=== PATIENT | female | born 1955 | race Caucasian/White ===

== ENCOUNTER 2017-02-13 11:40 | Emergency (ER) | payer MEDICARE ==
[~2017-02-13] VITALS: Ht 167.6 cm; Wt 109.8 kg
[~2017-02-13 11:40] MED LIST: CHANTIX1 M1 PO; CLONIDINE 0.2M0.2 MG PO; FENOFIBRATE160 MG PO; GLYBURIDE2.5 MG PO; GOOD NEIGHBOR P20 M1 PO; LORATADINE 10MG10 M1 PO; MAXZIDE 50 MG-71 TAB OR; METFORMIN 500M500 MG PO; NAPROSYN500 M1 PO; PRAVACHOL 40MG40 MG PO; ROBAXIN-750750 MG PO; SERTRALINE 100100 MG PO; TRAMADOL50 M1 PO
--- OUTSIDE RECORDS SUMMARY | 2017-02-13 11:46 | External Medical Summary Rpt | CCD ---
Author Author [employer] Organization [employer] Address Unknown Phone Unavailable Purpose Continuity of Care Document - through 2016
--- OUTSIDE RECORDS SUMMARY | 2017-02-13 11:46 | External Medical Summary Rpt | CCD ---
Author Author , BETTYE WEN Address Unknown Phone [email or web address] Purpose Continuity of Care Document - 06-30-2013 through 2016 Problems Code Diagnosis DOS Provider Status S39.012A STRAIN OF MUSCLE, FASCIA AND TENDON OF LOWER BACK, INIT
--- OUTSIDE RECORDS SUMMARY | 2017-02-13 11:46 | External Medical Summary Rpt | CCD ---
Author Author , BETTYE WEN Address Unknown Phone [email or web address] Purpose Continuity of Care Document - 06-30-2013 through 2016 Problems Code Diagnosis DOS Provider Status S39.012A STRAIN OF MUSCLE, FASCIA AND TENDON OF LOWER BACK, INIT
--- OUTSIDE RECORDS SUMMARY | 2017-02-13 11:47 | External Medical Summary Rpt ---
Author Author ДМИТРИЙSALVADOR Woods, BETTYE [employer] Organization [employer] Address Unknown Phone Unavailable Results Lipid Scr Observa Value Referen Units Interpr Notes Date tion ce etation Range Cholest 154 <=200 mg/dL No < 200 August 08 zi informa 2017 [Percen tion in 5:10 PM tile] source Desirab data le\.br\ 200 - 239 Borderl ine High\.b r\>= 240 High TRIGLYC 308 <=150 mg/dL High < 150 August 08 ERIDES. 2017 TOTAL Normal\ 5:10 PM .br\150 - 199 Borderl ine High\.b r\200 - 499 High\.b r\ >= 500 Very High CHOLEST 34 >=40 mg/dL Low > 60 August 08 EROLS.I 2017 N HDL Optimal 5:10 PM \.br\40 - 60 Accepta ble\.br \ < 40 Low LDL 58 <=100 mg/dL No < 100 August 08 Calcula informa 2016 sheila tion in 5:10 PM source Optimal data \.br\10 0 - 129 Near or above optimal \.br\13 0 - 159 Borderl ine High\.b r\160 - 189 High\.b r\ >= 190 Very High BMP Observa Value Referen Units Interpr Notes Date tion ce etation Range Sodium 136 136 - mmol/L No No August 08 145 informa informa 2016 tion in tion in 5:10 PM source source data data Potassi 4.6 3.5 - mmol/L No No August 08 um 5.0 informa informa 2016 [Moles/ tion in tion in 5:10 PM volume] source source in data data Serum or Plasma Chlorid 97 98 - mmol/L Low No August 08 e 107 informa 2016 tion in 5:10 PM source data Carbon 26 22 - 29 mmol/L No No August 08 dioxide informa informa 2016 , total tion in tion in 5:10 PM source source [Moles/ data data volume] in Serum or Plasma Anion 13 7 - 16 mmol/L No No August 08 Gap informa informa 2016 tion in tion in 5:10 PM source source data data CALCIUM 9.5 8.6 - mg/dL No August 08 .TOTAL 10.2 informa informa 2016 tion in tion in 5:10 PM source source data data Glucose 85 74 - mg/dL No August 08 Lvl 100 informa informa 2016 tion in tion in 5:10 PM source source data data BUN 17 6 - 20 mg/dL No August 08 informa informa 2017 tion in tion in 5:10 PM source source data data Creatin 1.00 0.51 - mg/dL No August 08 ine 1.30 informa informa 2016 tion in tion in 5:10 PM source source data data GFR Non 57 No No No August 08 Afr Am informa informa informa informa 2016 tion in tion in tion in tion in 5:10 PM source source source source data data data data XR FOOT RIGHT AP LATERAL AND OBLIQUE Observa Value Referen Units Interpr Notes Date tion ce etation Range 07/25/19 No No No No Jul 24 17\.br\ informa informa informa informa 2016 \.br\Ri tion in tion in tion in ti in 8:41 PM ght source source source source foot data data data data series, 3 views:\ .br\\.b r\Histo ry: Chronic pain. No compari son studies .\.br\\ .br\Mod erate degener ative change, first MTP joint. No evidenc e of fractur e or\.br\ bony\.b r\destr uctive process . Focal accesso ry ossicle noted, base of the fifth\. br\meta tarsal. Moderat e degener ative change involve s the midfoot structu res\.br \and\.b r\subta lar joint. Focal bony calcane al hypertr ophic spur. If the patient has\.br \progre ssive pain or instabi lity, conside r follow- up MR imaging .\.br\\ .br\IMP RESSION :\.br\I mpressi on:\.br \\.br\M ultifoc al degener ative change, right foot. No acute fractur e deformi ty.\.br \ HCV Screen Observa Value Referen Units Interpr Notes Date tion ce etation Range Hep C Negativ Negativ No No No Jul 8 Ab e e informa informa informa 2016 tion in tion in tion in 9:16 AM source source source data data data XR CHEST PA AND LATERAL Observa Value Referen Units Interpr Notes Date ti ce etation Range \.br\XR No No No No Jun 11 CHEST informa informa informa informa 2017 PA AND tion in tion in tion in tion in 3:44 PM LATERAL source source source source data data data data 06/15/19 17 3:44 PM\.br\ HISTORY : -COUGH. \.br\\. br\Comp are: April 23, 2010\.b r\\.br\ \.br\Ev idence of old granulo matous disease noted.\ .br\Hea rt size normal. Lungs free of infiltr ate. No pneumot horax.\ .br\\.b r\IMPRE SSION:\ .br\Imp ression : No acute finding s.\.br\ XR KNEE LEFT AP LAT INT EXT OBLIQUES AND SUNRISE Observa Value Referen Units Interpr Notes Date ce etation Range XR KNEE No No No No Jun 04 LEFT informa informa informa informa 2016 AP LAT tion in tion in tion in tion in 12:06 INT EXT source source source source AM data data data data OBLIQUE S AND SUNRISE , 7 12:06 AM\.br\ \.br\HI STORY: -KNEE PAIN\.b r\\.br\ DISCUSS ION: 6 views of the left knee without compari son show no fractur e,\.br\ disloca tion, or joint effusio n. There is a shallow osteoch ondral defect at\.br\ the\.br \medial aspect of the medial femoral condyle . There is minimal \.br\os teoarth ritis at\.br\ the patello femoral and medial compart ments with tiny margina l spurs. Joint\. br\spac es are largely preserv ed. Small proxima l patella r entheso phyte. Normal\ .br\keshawn iant fabella .\.br\\ .br\IMP RESSION :\.br\O steocho ndral defect medial femoral condyle . Minimal osteoar thritis .\.br\ BMP Observa Value Referen Units Interpr Notes Date tion ce etation Range Sodium 139 136 - mmol/L No No Jan 14 145 informa informa 2016 tion in tion in 10:08 source source PM data data Potassi 4.2 3.5 - mmol/L No No Jan 14 um 5.0 informa informa 2016 [Moles/ tion in tion in 10:08 volume] source source PM in data data Serum or Plasma Chlorid 103 98 - mmol/L No No Jan 14 e 107 informa informa 2016 tion in tion in 10:08 source source PM data data Carbon 23 22 - 29 mmol/L No No Jan 14 dioxide informa informa 2016 , total tion in tion in 10:08 source source PM [Moles/ data data volume] in Serum or Plasma Anion 13 7 - 16 mmol/L No No Jan 14 Gap informa informa 2016 tion in tion in 10:08 source source PM data data CALCIUM 9.4 8.6 - mg/dL No No Jan 14 .TOTAL 10.2 informa informa 2016 tion in tion in 10:08 source source PM data data Glucose 59 74 - mg/dL Low No Jan 14 Lvl 100 informa 2015 tion in :08 source PM data BUN 27 6 - 20 mg/dL High No Jan 14 informa 2015 tion in 10:08 source PM data Creatin 1.18 0.51 - mg/dL No No Jan 14 ine 1.30 informa informa 2016 tion in tion in 10:08 source source PM data data GFR Afr 57 No No No No Jan 14 Am informa informa informa informa 2016 tion in tion in tion in tion in 10:08 source source source source PM data data data data GFR Non 47 No No No No Jan 14 Afr Am informa informa informa informa 2016 tion in tion in tion in tion in 10:08 source source source source PM data data data data Lipid Scr Observa Value Referen Units Interpr Notes Date tion ce etation Range Cholest 152 <=200 mg/dL No < 200 August 09 zi informa 2016 [Percen tion in 9:32 PM tile] source Desirab data le\.br\ 200 - 239 Borderl ine High\.b r\>= 240 High TRIGLYC 193 <=150 mg/dL High < 150 August 09 ERIDES. 2016 TOTAL Normal\ 9:32 PM .br\150 - 199 Borderl ine High\.b r\200 - 499 High\.b r\ >= 500 Very High CHOLEST 37 >=40 mg/dL Low > 60 August 09 EROLS.I 2016 N HDL Optimal 9:32 PM \.br\40 - 60 Accepta ble\.br \ < 40 Low LDL 76 <=100 mg/dL No < 100 August 09 Calcula informa 2015 sheila tion in 9:32 PM source Optimal data \.br\10 0 - 129 Near or above optimal \.br\13 0 - 159 Borderl ine High\.b r\160 - 189 High\.b r\ >= 190 Very High LDL Observa Value Referen Units Interpr Notes Date tion ce etation Range LDL 66 <=100 mg/dL No < 100 May 18 Calcula informa 2014 sheila tion in 7:33 PM source Optimal data \.br\10 0 - 129 Near or above optimal \.br\13 0 - 159 Borderl ine High\.b r\160 - 189 High\.b r\ >= 190 Very High Lipid Refx Observa Value Referen Units Interpr Notes Date tion ce etation Range Cholest 149 <=200 mg/dL No < 200 May 18 zi informa 2015 [Percen tion in 7:33 PM tile] source Desirab data le\.br\ 200 - 239 Borderl ine High\.b r\>= 240 High TRIGLYC 269 <=150 mg/dL High < 150 May 18 ERIDES. 2015 TOTAL Normal\ 7:33 PM .br\150 - 199 Borderl ine High\.b r\200 - 499 High\.b r\ >= 500 Very High CHOLEST 29 >=40 mg/dL Low > 60 May 18 EROLS.I 2014 N HDL Optimal 7:33 PM \.br\40 - 60 Accepta ble\.br \ < 40 Low Lipid Refx Observa Value Referen Units Interpr Notes Date tion ce etation Range Cholest 163 <=200 mg/dL No < 200 Jun 30 zi informa 2014 [Percen tion in 6:43 PM tile] source Desirab data le\.br\ 200 - 239 Borderl ine High\.b r\>= 240 High TRIGLYC 235 <=150 mg/dL High < 150 Jun 30 ERIDES. 2014 TOTAL Normal\ 6:43 PM .br\150 - 199 Borderl ine High\.b r\200 - 499 High\.b r\ >= 500 Very High CHOLEST 38 >=40 mg/dL Low > 60 Jun 30 EROLS.I 2014 N HDL Optimal 6:43 PM \.br\40 - 60 Accepta ble\.br \ < 40 Low LDL Observa Value Referen Units Interpr Notes Date tion ce etation Range LDL 78 <=100 mg/dL No < 100 Jun 30 Calcula informa 2014 sheila tion in 6:43 PM source Optimal data \.br\10 0 - 129 Near or above optimal \.br\13 0 - 159 Borderl ine High\.b r\160 - 189 High\.b r\ >= 190 Very High Hepatic Pa Observa Value Referen Units Interpr Notes Date tion ce etation Range Protein 7.7 6.4 - gm/dL No No Jun 30 8.3 informa informa 2013 [Mass/v tion in tion in 6:43 PM olume] source source in data data Serum or Plasma Albumin 4.2 3.5 - gm/dL No No Jun 30 5.2 informa informa 2013 [Mass/v tion in tion in 6:43 PM olume] source source in data data Serum or Plasma Alanine 18 <=41 IU/L No No Jun 30 informa informa 2014 aminotr tion in tion in 6:43 PM ansfera source source se data data [Enzyma tic activit y/volum e] in Serum or Plasma Alkalin 102 35 - IU/L No No Jun 30 e 104 informa informa 2014 phospha tion in tion in 6:43 PM tase source source [Enzyma data data tic activit y/volum e] in Serum or Plasma
--- OUTSIDE RECORDS SUMMARY | 2017-02-13 11:47 | External Medical Summary Rpt ---
Author Author ДМИТРИЙSALVADOR Woods, BETTEY [employer] Organization [employer] Address Unknown Phone [...]
--- OUTSIDE RECORDS SUMMARY | 2017-02-13 11:47 | External Medical Summary Rpt | CCD ---
Demographics Home Phone Preferred Language Kyrgyz Marital Status Unknown [employer] Affiliation Unknown Race Unknown Ethnic Group Unknown Author Author , BETTYE Organization BETTYE Address Unknown Phone [email or web address] Support Name Relationship Address Phone LOPES, Next Of Kin Unknown Unavailable ASHER Immunization Name Date Rout CVX Reac Dose Comm Prov Is Faci e tion ent ider Refu lity Give sed n Infl 10-1 150 999 Hist D041 No D041 uenz 1-20 oric 01 01 a 16 al Quad Info Inj rmat ion - Sour ce Unsp ecif ied Tdap 09-0 Intr 115 999 Hist [place] , 4-20 amus oric Adso 15 cula al rbed r Info rmat ion - Sour ce Unsp ecif ied Infl 09-0 Intr 999 Hist [place] uenz 4-20 amus oric a 15 cula al Quad r Info rmat W/Pr ion es - Sour ce Unsp ecif ied Td 01-2 Intr 9 999 Hist H134 No H134 (ange 1-19 amus oric lt), 97 cula al r Info adso rmat rbed ion - Sour ce Unsp ecif ied
--- OUTSIDE RECORDS SUMMARY | 2017-02-13 11:47 | External Medical Summary Rpt | CCD ---
Demographics Home Phone Preferred Language Luxembourger Marital Status Unknown Religion Affiliation Unknown Race Unknown Ethnic Group Unknown Author Author , BETTYE Organization BETTYE Address Unknown Phone [email or web address] Support Name Relationship Address Phone LOPES, Next [...] ied Tdap 09-0 Intr 115 999 Hist [place] , 4-20 amus oric Adso 15 cula al rbed r Info rmat ion - Sour ce Unsp ecif ied Infl 09-0 Intr 999 Hist [place] uenz 4-20 amus oric a 15 cula al Quad r Info rmat W/Pr ion es - Sour ce Unsp ecif ied Td 01-2 Intr 9 999 Hist H134 No H134 (ange 1-19 amus oric lt), 97 cula al r Info adso rmat rbed ion - Sour ce Unsp ecif ied
--- NOTE | 2017-02-13 12:29 | Urgent Treatment Center Report ---
History of Present Issue Date/Time Seen by Provider 02/13/17 1222 Visit Reason Pt arrived:Walked Presenting Problem:PT C/O SINUS PRESSURE AND PAIN AND A COUGH. Location if Accident: Onset of symptoms date/time:/ or onset unknown for:MEDICAL HX UNKNOWN Have you (or family members/close friends) recently traveled outside the [place]? N If Yes, where/when: Have you had exposure to infectious disease within the past month? TB? Other? Specify: Here w/ nephew who has same head symptoms starting days after patient's. Pt c/o starting w/ rhinorrhea, nasal congestion, scratchy throat, ear pressure 4-5 days ago but has since moved into chest and now PND, chest congestion, productive cough w/ yellow-green sputum, "slight" increase in SOA and wheezing. Hx of COPD and continued tobacco abuse but denies currently on any medication for COPD "he gives me an inhaler when I am like this though". No known fevers. Denies malaise. Hx of HTN and DM. Reports FSBG avg 120-130s. Source patient Exam Limitations no limitations ALLERGIES Coded Allergies: Sulfa (Sulfonamide Antibiotics) (Intermediate, hives and nausea 11/16/16) Home Medications Active Scripts Naproxen (Naprosyn 500MG Tab) 500 MG PO BID #14 TAB Prov: 11/16/16 TRAMADOL HCL (Tramadol) 50 MG PO Q6HP PRN pain #10 TAB Prov: 11/16/16 Methocarbamol (Robaxin 750MG) 750 MG PO TIDP PRN back pain #20 TAB Prov: 11/16/16 Reported Medications Varenicline (Chantix) 1 MG PO DAILY PRAVASTATIN SODIUM (Pravastatin Sodium) 40 MG PO QHS METFORMIN HCL (Metformin 500MG) 500 MG PO BID Clonidine Hydrochloride (Clonidine 0.2MG Tab) 0.1 MG PO BID Omeprazole 20 MG PO DAILY Loratadine (Loratadine 10MG Tablet) 10 MG PO DAILY Fenofibrate (Fenofibrate 160MG (GEQ: Lofibra)) 160 MG PO DAILY TRIAMTERENE/HYDROCHLOROTHIAZID (Triamterene-Hctz 75-50 MG Tab) 1 EACH OR DAILY Sertraline Hydrochloride (Sertraline 100MG) 100 MG PO DAILY Glyburide (Glyburide 2.5MG) 1.25 MG PO DAILY-DM History Medical History General CAD? Yes Angina: Yes [place]: Yes Hypertension? Yes Hyperlipidemia? Yes CHF? No DVT? No PE? No COPD? Yes Asthma? Yes Anemia? No GERD? No Gastric ulcers? No GI Bleed? No Hernia? No Thyroid Problems? No Hypothyroidism? No CVA? No Seizures? No Diabetes? Yes Insulin Dependent: No Insulin Pump: No Home FSBS? Yes Renal Insuffiency? Yes UTI? No Stones? No BPH? No GB Disease: No Nephritic Syndrome? No Asplenia? No Hepatitis? No Sickle Cell Disease? No Arthritis? Yes Migraines? No Cataracts? No Glaucoma? No MRSA? No HIV? No TB? No Anxiety? Yes Depression? Yes Cancer? No More? No Immunization HX DT/Tetanus Unknown Surgical Hx Previous Surgery?Y Heart stents Tonsillectomy Social History Smoking Hx Smoker: Current Every Day Smoker Tobacco: Yes Type Cigarettes Packs/day 1 1/2 - 2 Packs Alcohol Alcohol: No Review of Systems All Other Systems Reviewed and Negative Constitutional see HPI, denies malaise, denies weakness Eyes denies drainage ENT see HPI. denies: ear discharge, throat swelling, other (sneezing). Respiratory see HPI Cardiovascular denies chest pain, denies palpitations Gastrointestinal denies no symptoms reported Skin denies rash Psychiatric/Neurological headache (pressure) Physical Exam Vital Signs Vital Signs Date Time Temp Pulse Resp B/P Pulse O2 O2 Flow FiO2 Ox Delivery Rate 02/13 1250 97.9 70 20 138/76 97 02/13 1212 97.9 70 20 138/76 97 General Appearance no apparent distress, obese Eye Exam - bilateral eye normal exam Ear, Nose, Throat normal ENT inspection (x/ mild nasal congestion) Respiratory Status Yes: trachea midline, chest symmetrical, non productive cough (worse w/ deep breaths). No: respiratory distress, use of accessory muscles, pain on inspiration, pain on expiration. Lung Sounds bilateral: rhonchi, wheezing (end exp throughout). Cardiovascular regular rate/rhythm, no peripheral edema, no murmur Neurologic alert, oriented x 3 Mental status normal mood/affect Skin normal color, warm/dry Lymphatic no adenopathy Medical Decision Making LABS/Meds/Orders Pt receiving controlled substance in ED? No Results/Orders Laboratory Tests 02/13/17 1224: Influenza Type A Ag NOT DETECTED, Influenza Type B Ag NOT DETECTED Orders Procedure Date/time Status [facility] FLU A,B 02/13 1224 Complete Departure Departure Time of Disposition 1242 Disposition DC Home or Self Care(routine) Clinical Impression Primary Impression: Acute bronchitis with COPD Secondary Impressions: Tobacco abuse Condition STABLE Referrals PARKER,MARV (Family) IMMEDIATELY for new or worsening symptoms OR no noticeable improvement over the next 48-72 hours. 911 for difficulty breathing. Patient Instructions DI for Acute Bronchitis, DI for Chronic Obstructive Pulmonary Disease, How to Quit Tobacco Products Additional Instructions * STOP SMOKING!!!! I understand you are trying and plan to start nicorrette because that has worked in the past. I wish you the best luck. Your COPD will continue to get worse and is NOT reversible as long as you continue to smoke. * start antibiotic today. Be sure to complete entire prescription even if feeling better. * Monitor Temp. Follow up if fevers develop. * humidifier/vaporizer/hot steamy shower * Inhaler every 4-6 hours as needed like we discussed. If unsure how to use it, ask pharmacist to demonstrate how. Should help open airways and improve cough, wheezing, shortness of breath. * Mucinex during the day for your cough and cough suppressant only at night. Be sure to drink lots of water. Insurance may not cover a prescription of mucinex. Might be cheaper to get 400mg tablets and take 2 tablets morning, midday and evening all with lots of water. * Promethazine DM cough syrup will cause drowsiness. Use it only at night. No driving, operating machinery or caring for small children after taking it. * Start steroid today. Helps with inflammation therefore, cough and wheezing. Pt reports they have taken them before and is aware they may raise her BP and/or blood sugar. Agrees to monitor closely and stop immediately with follow up if either were to raise. Discharge Counseling Counseled pt/family regarding diagnosis, test results, medications/RX, home care, follow up needs Prescriptions Current Visit Scripts ALBUTEROL (Proventil Hfa Inhaler) 1-2 PUFF IH Q4-6H PRN PRN SOA, wheezing #1 CAN Azithromycin (Zithromycin (Z-HERMES) 250MG Tab) 250 MG PO DAILY #6 TAB TAKE TWO (2) TABLETS ON DAY 1, THEN ONE (1) TABLET DAY #2 THRU #5 Prednisone (Prednisone 20MG) 20 MG PO BID #10 TAB PROMETHAZINE/DEXTROMETHORPHAN (Promethazine-Dm Syrup) 5-10 ML PO QHSP PRN cough #90 ML will cause drowsiness at 1509
[2017-02-13] MEDS ORDERED: PREDNISONE 20MG20 MG PO (12:46)
[2017-02-13] MEDS ORDERED: PROMETHAZINE D118 ML PO (12:46)
[2017-02-13] MEDS ORDERED: ZITHROMAX Z PA250 MG PO (12:46)
[2017-02-13] MEDS ORDERED: PROVENTIL0.09 MG/A1 IH (12:46)
[2017-02-13 12:50] VITALS: BP 138/76
== END 2017-02-13 12:58 | disposition home or self-care (01) ==
LOC: UTC 11:40
DX: J44.1 Chronic obstructive pulmonary disease with (acute) exacerbation (principal); Z72.0 Tobacco use; I10 Essential (primary) hypertension; E11.9 Type 2 diabetes mellitus without complications; Z88.2 Allergy status to sulfonamides; I25.10 Atherosclerotic heart disease of native coronary artery without angina pectoris; E78.5 Hyperlipidemia, unspecified; F41.8 Other specified anxiety disorders

== ENCOUNTER 2017-03-08 18:55 | Emergency (ER) | payer MEDICARE ==
[~2017-03-08] VITALS: Ht 167.6 cm; Wt 109.8 kg
[~2017-03-08 18:55] MED LIST changes: +PREDNISONE 20MG20 MG PO; +PROMETHAZINE D118 ML PO; +PROVENTIL0.09 MG/A1 IH; +ZITHROMAX Z PA250 MG PO
--- OUTSIDE RECORDS SUMMARY | 2017-03-08 19:02 | External Medical Summary Rpt | CCD ---
Demographics Home Phone Preferred Language [place]ican Marital Status Unknown Yarsani Affiliation Unknown Race Unknown Ethnic Group Unknown Author Author , BETTYE Organization BETTYE Address Unknown Phone [email or web address] Support Name Relationship Address Phone LOPES, Next [...] ecif ied Infl 09-0 Intr 999 Hist [place] uenz 4-20 amus oric a 15 cula al Quad r Info rmat W/Pr ion es - Sour ce Unsp ecif ied Tdap 09-0 Intr 115 999 Hist [place] , 4-20 amus oric Adso 15 cula al rbed r Info rmat ion - Sour ce Unsp ecif ied Td 01-2 Intr 9 999 Hist H134 No H134 (ange 1-19 amus oric lt), 97 cula al r Info adso rmat rbed ion - Sour ce Unsp ecif ied
--- OUTSIDE RECORDS SUMMARY | 2017-03-08 19:02 | External Medical Summary Rpt | CCD ---
Author Author , BETTYE WEN Address Unknown Phone [email or web address] Care Team Providers Care Neurology Stroke Physician Name Role Phone [facility], Unavailable Unavailable [facility] MATTY TRIVEDI, MATTY Unavailable Unavailable [facility] Unavailable Unavailable EMERGENCY PHYS, [facility] Unavailable Unavailable PHYSICIANS, [facility] Purpose Continuity of Care Document - 06-30-2013 through 2016 Problems Code Diagnosis DOS Provider Status E119 TYPE 2 01-08-2016 [place] [facility] MELLITUS HOSP[facility] WITHOUT COMPLICATIO NS I2510 ASHD PLATINUM 01-08-2016 [place] 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 J22 UNSPECIFIED 01-08-2016 [place] ACUTE [facility]TI[facility] LOWER HOSPITA RESPIRATORY INFECTION J441 CHRONIC 01-08-2016 [place] [facility] DZ W/EXACERBAT ION R0789 OTHER CHEST 01-08-2016 [place] PAIN [facility]TI[facility] HOSPITA Z720 TOBACCO USE 01-08-2016 [facility] 92946 DIAB 05-18-2014 ST W/RENAL [facility] TYPE II/UNS NOT UNCNTRL 2720 PURE 05-18-2014 ST HYPERCHOLES [facility] TEROLEMIA PHYSICIANS 4019 UNSPECIFIED 05-18-2014 ST ESSENTIAL [facility] HYPERTENSIO PHYSICIANS N 5853 CHRONIC 05-18-2014 ST KIDNEY [facility] DISEASE PHYSICIANS STAGE III (MODERATE) 4739 UNSPECIFIED 05-12-2014 ST SINUSITIS [facility] 5457 CELLULITIS 05-12-2014 ST AND ABSCESS [facility] OF PHYSICIANS UNSPECIFIED SITE 7862 COUGH 04-08-2014 [facility] 7295 PAIN IN 10-13-2013 [facility] TISSUES OF LIMB 72345 SPRAIN AND 10-13-2013 MATTY TRIVEDI STRAIN OF UNSPECIFIED SITE OF FOOT 10580 CONTUSION 10-13-2013 MATTY FAROOQ OF FOOT E8859 FALL FROM 10-13-2013 MATTY TRIVEDI OTHER SLIPPING TRIPPING OR STUMBLING 95596 COR 10-04-2013 [facility] [place] UNSPEC PHYSICIANS TYPE VESSEL PLATINUM/ISAC T 4779 ALLERGIC 10-04-2013 RHINITIS [place] CAUSE PHYSICIANS UNSPECIFIED 05890 ESOPHAGEAL 10-04-2013 REFLUX [place] [facility] V700 ROUTINE 10-04-2013 [facility] [place] [facility] [email or web address] [email or web address] FACL 4659 ACUTE URIS 09-03-2013 [facility] UNSPECIFIED PHYS SITE B96.89 Other specified bacterial agents as the cause of diseases classified elsewhere E11.22 Type 2 diabetes mellitus with diabetic chronic kidney disease E11.69 Type 2 diabetes mellitus with other specified complicatio n E66.9 Obesity, unspecified E78.00 Pure hypercholes terolemia, unspecified E78.5 Hyperlipide bigg, unspecified F41.1 Generalized anxiety disorder H65.192 Other acute nonsuppurat belkys otitis media, left ear I10 Essential (primary) hypertensio n J01.90 Acute sinusitis, unspecified J20.9 Acute bronchitis, unspecified M25.562 Pain in left knee M32.9 Systemic lupus erythematos us, unspecified M95.8 Other specified acquired deformities of musculoskel etal system N18.3 Chronic kidney disease, stage 3 (moderate) S39.012A STRAIN OF MUSCLE, FASCIA AND TENDON OF LOWER BACK, INIT S89.92XA Unspecified injury of left lower leg, initial encounter S96.911A Strain of unspecified muscle and tendon at ankle and foot level, right foot, initial encounter Z11.59 Encounter for screening for other viral diseases Z12.31 Encounter for screening mammogram for malignant neoplasm of breast Z72.0 Tobacco use Z79.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 Allergies, Adverse Reactions, Alerts Clinical Alert Notifications Alert Diabetes: no eye exam in the last 365 days Diabetes: no lipid panel in the last 365 days Diabetes: no urine protein screening in the last 365 days Results Labs Lab Lab Date Result Refere Interp Status Commen Order Detail nces retati t Range on Rapid influenza A and B antigen detectio (02-13-2017 12:24) INFLUEN NOT NOT complet ZA B 017 DETECTE DETECTD ed ANTIGEN 12:24 D Comment: LOT # [id number] EXP DATE @2018-07-04 Influen NOT NOT complet za A ag 017 DETECTE DETECTD ed QL 12:24 D NOT DETECTE D L Influenza virus A+B Ag [Presence] in Unspecified specimen (02-13-2017 12:24) Influen NOT NOT complet za 017 DETECTE DETECTD ed virus A 12:24 D Ag [Presen ce] in Unspeci fied specime n INFLUEN NOT NOT complet ZA B 017 DETECTE DETECTD ed ANTIGEN 12:24 D Encounters Encounter Start End Date Code Location Performer Type Date [facility] [place] [address] 6 N OUTPATIEN COMMUNTIY T [facility] - [facility] ST
--- OUTSIDE RECORDS SUMMARY | 2017-03-08 19:02 | External Medical Summary Rpt | CCD ---
Author Author , BETTYE WEN Address Unknown Phone [email or web address] Care Team Providers Care Massotherapist Name Role Phone [facility], Unavailable Unavailable [facility] MATTY TRIVEDI, MATTY Unavailable Unavailable [facility] Un[facility] Unavailable [facility]available EMERGENCY PHYS, [facility] Unavailable Unavailable PHYSICIANS, [facility] Purpose Continuity of Care Document - 06-30-2013 through 2016 Problems Code Diagnosis DOS Provider Status E119 TYPE 2 01-08-2016 [place] [facility] MELLITUS HOSPITA WITHOUT COMPLICATIO NS I2510 ASHD [place] 01-08-2016 [place] 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 J22 UNSPECIFIED 01-08-2016 [place] ACUTE [facility]TI[facility] LOWER HOSPITA RESPIRATORY INFECTION J441 CHRONIC 01-08-2016 [place] [facility] DZ W/EXACERBAT ION R0789 OTHER CHEST 01-08-2016 [place] PAIN [facility]UNTIY HOSPITA Z720 TOBACCO USE 01-08-2016 [place] [facility] 75410 DIAB 05-18-2014 ST W/RENAL [facility] TYPE II/UNS NOT UNCNTRL 2720 PURE 05-18-2014 [facility] HYPERCHOLES [facility] TEROLEMIA PHYSICIANS 4019 UNSPECIFIED 05-18-2014 ST ESSENTIAL [facility] HYPERTENSIO PHYSICIANS N 5853 CHRONIC 05-18-2014 [facility] KIDNEY [facility] DISEASE PHYSICIANS STAGE III (MODERATE) 4739 UNSPECIFIED 05-12-2014 [facility] SINUSITIS [facility] 0349 CELLULITIS 05-12-2014 ST AND ABSCESS [facility] OF PHYSICIANS UNSPECIFIED SITE 7862 COUGH 04-08-2014 [facility] 7295 PAIN IN 10-13-2013 [facility] [place] [facility] TISSUES OF LIMB 41045 SPRAIN AND 10-13-2013 MATTY TRIVEDI STRAIN OF UNSPECIFIED SITE OF FOOT 81877 CONTUSION 10-13-2013 MATTY FAROOQ OF FOOT E8859 FALL FROM 10-13-2013 MATTY TRIVEDI OTHER SLIPPING TRIPPING OR STUMBLING 68557 COR 10-04-2013 [facility]ERO [place] UNSPEC PHYSICIANS TYPE VESSEL [place]/ISAC T 4779 ALLERGIC 10-04-2013 RHINITIS [place] CAUSE PHYSICIANS UNSPECIFIED 32823 ESOPHAGEAL 10-04-2013 REFLUX [facility] [facility] V700 ROUTINE 10-04-2013 [facility] [email or web address] [email or web address] FACL 4659 ACUTE [...] of breast Z72.0 Tobacco use Z79.899 Other long term care pharmacist (current) drug therapy Allergies, Adverse Reactions, Alerts [...] ed ANTIGEN 12:24 D Comment: LOT # [id number] EXP DATE @2018-07-04 Influen NOT NOT complet [...] End Date Code Location Performer Type Date [facility] [place] [address] 6 N OUTPATIEN COMM[facility]Y T [facility] - [facility]
--- OUTSIDE RECORDS SUMMARY | 2017-03-08 19:02 | External Medical Summary Rpt | CCD ---
Demographics Home Phone Preferred Language Welsh Marital Status Unknown Zoroastrianism Affiliation Unknown Race Unknown Ethnic Group Unknown Author Author , BETTYE Organization BETTYE Address Unknown Phone [email or web address] Name Relationship Address Phone LOPES, Next [...] ecif ied Infl 09-[address] uenz 4-20 amus oric a 15 cula al Quad r Info rmat W/Pr ion es - Sour ce Unsp ecif ied Tdap 09-0 Intr [address] , 4-20 amus oric Adso 15 cula al rbed r Info rmat ion - Sour ce Unsp ecif ied Td 01-2 Intr 9 999 Hist H134 No H134 (ange 1-19 amus oric lt), 97 cula al r Info adso rmat rbed ion - Sour ce Unsp ecif ied
--- OUTSIDE RECORDS SUMMARY | 2017-03-08 19:03 | External Medical Summary Rpt ---
Author Author ДМИТРИЙSALVADOR Woods, BETTYE SHIMAUMA [employer] Organization [employer] Address Unknown Phone Unavailable Results Influenza virus A+B Ag [Presence] in Unspecified specimen Observa Value Referen Units Interpr Notes Date tion ce etation Range Influen NOT NOT No No No Feb 13 za DETECTE DETECTD informa informa informa 2017 virus A D tion in tion in tion in 12:24 Ag source source source PM [Presen data data data ce] in Unspeci fied specime n INFLUEN NOT NOT No No LOT # Feb 13 ZA B DETECTE DETECTD informa informa @[id number] ANTIGEN D tion in tion in EXP 12:24 source source DATE PM data data @ 3-31 Lipid Scr Observa Value Referen Units Interpr [...] No < 100 August 08 Calcula informa 2017 sheila tion in 5:10 PM source Optimal data \.br\10 0 - 129 Near or above optimal \.br\13 0 - 159 Borderl ine High\.b r\160 - 189 High\.b r\ >= 190 Very High BMP Observa Value Referen Units Interpr Notes Date tion ce etation Range Sodium 136 136 - mmol/L No No August 08 145 informa informa 2017 tion in tion in 5:10 PM source source data data Potassi 4.6 3.5 - mmol/L No August 08 um 5.0 informa informa 2016 [Moles/ tion in tion in 5:10 PM volume] source source in data data Serum or Plasma Chlorid 97 98 - mmol/L Low No August 08 e 107 informa 2016 tion in 5:10 PM source data Carbon 26 22 - 29 mmol/L No August 08 dioxide informa informa 2016 [...] 20 mg/dL No August 08 informa informa 2016 tion in tion in [...] \.br\Ri tion in tion in tion in tion in 8:41 PM ght source source source [...] Range \.br\XR No No No No Jun 14 CHEST informa informa informa informa 2016 PA AND tion in tion in tion [...] Interpr Notes Date ti ce etation Range XR KNEE No No [...] Low No Jan 14 Lvl 100 informa 2016 tion in 10:08 source PM data BUN 27 6 - 20 mg/dL High No Jan 14 informa 2016 tion in 10:08 source PM data Creatin 1.18 0.51 - mg/dL No No Oct 11 ine 1.30 informa informa 2016 tion in tion in 10:08 source source PM data data GFR Afr 57 No No No No Jan 14 Am informa informa informa informa 2016 tion in tion in tion in tion in 10:08 source source source source PM data data data data GFR Non 47 No No No No Jan 11 Afr Am informa informa informa informa 2016 [...] No < 100 August 09 Calcula informa 2016 sheila tion in 9:32 PM source Optimal data \.br\10 0 - 129 Near or above optimal \.br\13 0 - 159 Borderl ine High\.b r\160 - 189 High\.b r\ >= 190 Very High LDL Observa Value Referen Units Interpr Notes Date tion ce etation Range LDL 66 <=100 mg/dL No < 100 May 18 Calcula informa 2015 sheila tion in 7:33 PM source Optimal data \.br\10 0 - 129 Near or above optimal \.br\13 0 - 159 Borderl ine High\.b r\160 - 189 High\.b r\ >= 190 Very High Lipid Refx Observa Value Referen Units Interpr Notes Date tion ce etation Range Cholest 149 <=200 mg/dL No < 200 May 12 zi informa 2015 [Percen tion in 7:33 PM tile] source Desirab data le\.br\ 200 - 239 Borderl ine High\.b r\>= 240 High TRIGLYC 269 <=150 mg/dL High < 150 May 18 ERIDES. 2014 TOTAL Normal\ 7:33 PM .br\150 - 199 Borderl ine High\.b r\200 - 499 High\.b r\ >= 500 Very High CHOLEST 29 >=40 mg/dL Low > 60 Fe EROLS.I 2014 N HDL Optimal 7:33 PM \.br\40 - 60 Accepta ble\.br \ < 40 Low Lipid Refx Observa Value Referen Units Interpr Notes Date tion ce etation Range Cholest 163 <=200 mg/dL No < 200 Jun 30 zi informa 2013 [Percen tion in 6:43 PM tile] source Desirab data le\.br\ 200 - 239 Borderl ine High\.b r\>= 240 High TRIGLYC 235 <=150 mg/dL High < 150 Jun 30 ERIDES. 2013 TOTAL Normal\ 6:43 PM .br\150 - 199 Borderl ine High\.b r\200 - 499 High\.b r\ >= 500 Very High CHOLEST 38 >=40 mg/dL Low > 60 Jun 30 EROLS.I 2013 N HDL Optimal 6:43 PM \.br\40 - [...]
--- OUTSIDE RECORDS SUMMARY | 2017-03-08 19:03 | External Medical Summary Rpt ---
Author Author ДМИТРИЙSALVADOR Woods, BETTYE [employer] Organization [employer] Address Unknown Phone Unavailable [...] 13 ZA B DETECTE DETECTD informa informa @[id number] ANTIGEN D tion in tion in EXP [...]
[2017-03-08] MEDS ORDERED: LEVAQUIN500 MG PO (19:29)
[2017-03-08] MEDS ORDERED: MUCINEX1200 MG PO (19:29)
[2017-03-08] MEDS ORDERED: PROAIR HFA0.09 MG/AC IH (19:29)
[2017-03-08] MEDS ORDERED: FLONASE 50 MCG16 GM (19:29)
--- NOTE | 2017-03-08 19:30 | Urgent Treatment Center Report ---
History of Present Issue Date/Time Seen by Provider 03/08/171911 Visit Reason Pt arrived:Walked Presenting Problem:COUGH, CONGESTION X2 DAYS Location if Accident: Onset of symptoms date/time:/ or onset unknown for:MEDICAL HX UNKNOWN Have you (or family members/close friends) recently traveled outside the [place]? N If Yes, where/when: Have you had exposure to infectious disease within the past month? TB? Other? Specify: Patient state that she has had cough and congestion for several days State that she has been having body aches and pain and pressure in her sinuses State that she feels the pressure behind her eyes and and feels sore in her sinuses state that she recently completed a zpack which helped for a few days then the symptoms returned and was worse than what they was in the begining States that now she has thick mucous from her nose and feels like it gets stuck in her throat ALLERGIES Coded Allergies: Sulfa (Sulfonamide Antibiotics) (03/08/17) Home Medications Active Scripts Naproxen (Naprosyn 500MG Tab) 500 MG PO BID #14 TAB Prov: 11/16/16 TRAMADOL HCL (Tramadol) 50 MG PO Q6HP PRN pain #10 TAB Prov: 11/16/16 Methocarbamol (Robaxin 750MG) 750 MG PO TIDP PRN back pain #20 TAB Prov: 11/16/16 ALBUTEROL (Proventil Hfa Inhaler) 1-2 PUFF IH Q4-6H PRN PRN SOA, wheezing #1 CAN Prov: 02/13/17 Azithromycin (Zithromycin (Z-HERMES) 250MG Tab) 250 MG PO DAILY #6 TAB Prov: 02/13/17 Prednisone (Prednisone 20MG) 20 MG PO BID #10 TAB Prov: 02/13/17 PROMETHAZINE/DEXTROMETHORPHAN (Promethazine-Dm Syrup) 5-10 ML PO QHSP PRN cough #90 ML Prov: 02/13/17 Reported Medications Varenicline (Chantix) 1 MG PO DAILY PRAVASTATIN SODIUM (Pravastatin Sodium) 40 MG PO QHS METFORMIN HCL (Metformin 500MG) 500 MG PO BID Clonidine Hydrochloride (Clonidine 0.2MG Tab) 0.1 MG PO BID Omeprazole 20 MG PO DAILY Loratadine (Loratadine 10MG Tablet) 10 MG PO DAILY Fenofibrate (Fenofibrate 160MG (GEQ: Lofibra)) 160 MG PO DAILY TRIAMTERENE/HYDROCHLOROTHIAZID (Triamterene-Hctz 75-50 MG Tab) 1 EACH OR DAILY Sertraline Hydrochloride (Sertraline 100MG) 100 MG PO DAILY Glyburide (Glyburide 2.5MG) 1.25 MG PO DAILY-DM History Medical History General CAD? Yes Angina: Yes [place]: Yes Hypertension? Yes Hyperlipidemia? Yes CHF? No DVT? No PE? No COPD? Yes Asthma? Yes Anemia? No GERD? No Gastric ulcers? No GI Bleed? No Hernia? No Thyroid Problems? No Hypothyroidism? No CVA? No Seizures? No Diabetes? Yes Insulin Dependent: No Insulin Pump: No Home FSBS? Yes Renal Insuffiency? Yes UTI? No Stones? No BPH? No GB Disease: No Nephritic Syndrome? No Asplenia? No Hepatitis? No Sickle Cell Disease? No Arthritis? Yes Migraines? No Cataracts? No Glaucoma? No MRSA? No HIV? No TB? No Anxiety? Yes Depression? Yes Cancer? No More? No Immunization HX DT/Tetanus Unknown Surgical Hx Previous Surgery?Y Heart stents Tonsillectomy Social History Smoking Hx Smoker: Current Every Day Smoker Tobacco: Yes Type Cigarettes Packs/day 1 1/2 - 2 Packs Alcohol Alcohol: No Review of Systems All Other Systems Reviewed and Negative Constitutional chills, fever ENT nose congestion. Respiratory cough Physical Exam Vital Signs Vital Signs Date Time Temp Pulse Resp B/P Pulse O2 O2 Flow FiO2 Ox Delivery Rate 03/08 1903 97.8 88 16 160/80 96 General Appearance Patient appeared ill, cheeks flushed sitting on exam table Ear, Nose, Throat sinus pain/drainage, nasal congestion, tenderness noted in both maxillary and frontal sinsus Respiratory Status Yes: trachea midline, chest symmetrical, non tender chest. No: respiratory distress. Lung Sounds bilateral: wheezing. Cardiovascular normal exam, regular rate/rhythm, no peripheral edema Neurologic alert, normal exam, oriented x 3 Medical Decision Making LABS/Meds/Orders Pt receiving controlled substance in ED? No Results/Orders Laboratory Tests 03/08/17 1920: Influenza Type A Ag NOT DETECTED, Influenza Type B Ag NOT DETECTED, Group A Strep Screen NOT DETECTED Current Medication Orders Sig/Judy Start time Last Medication Dose Route Stop Time Status Admin Albuterol/Ipratropium 3 ML ONCE ONE 03/08 1930 DC INH 03/08 1931 Levofloxacin 500 MG ONCE ONE 03/08 1930 DC PO 03/08 1931 Orders Procedure Date/time Status RT REQUEST DUONEB 03/08 1920 Active UTC STREP SCREEN 03/08 1920 Complete UTC FLU A,B 03/08 1920 Complete Progress UTC Progress Notes Comment Patient state that she feels like she can breathe much better after Duo Departure Departure Time of Disposition 1941 Disposition DC Home or Self Care(routine) Clinical Impression Primary Impression: Sinusitis Qualifiers: Sinusitis location: unspecified location Chronicity: unspecified Qualified Code: J32.9 - Chronic sinusitis, unspecified Condition STABLE Referrals MARV CANALES (Family): 4 Days-Call Office if no improvement Patient Instructions DI for Sinusitis, Sinus Headache, Sinusitis Additional Instructions * Monitor Temp. Tylenol and/or Ibuprofen as needed. ER if fever is no less than 101 despite alternating Tylenol and Ibuprofen * Encourage fluids, water, Gatorade, powerade, pedialyte if /toddler/or child * Warm salt water gargles for throat irritation *Warm fluids *Sore throat lozenges *Sleep elevated *humidifier or vaporizer Lots of rest Increase fluids, water, Gatorade, powerade *Flonase 2 sprays each nostril daily but may take 2-3 days to notice improvement with it *Your throat swab was sent to lab for culture. Those results area typically sent to your primary care physician. Be sure to follow up in 2-3 days if no improvement so they can review those results and treat if necessary If you dont have primary care I recommend you get one, but in the mean time you will have to return to a walk in clinic Follow up IMMEDIATELY for new or worsening of symptoms OR no noticeable improvement over the next 48-72 hours. 911 immediately for any life threatening symptoms such as chest pain or difficulty breathing Discharge Counseling Counseled pt/family regarding diagnosis Prescriptions Current Visit Scripts Levofloxacin (Levaquin 500MG) 500 MG PO DAILY #10 TAB Fluticasone Propionate (Flonase 50 Mcg Nasal [place]) 2 SPRAY NA DAILY #1 BOT Guaifenesin (Mucinex) 1,200 MG PO BID #20 TER Albuterol Sulfate (Proair Hfa) 2 PUFFS IH QID #1 INH Ref 1 at 1942
[2017-03-08 19:31] LABS: UTC STREP SCREEN NOT DETECTED (NOTDETECTED)
[2017-03-08] MEDS ORDERED: PROMETHAZINE D118 ML PO (19:49)
[2017-03-08 19:52] VITALS: BP 164/88
== END 2017-03-08 19:53 | disposition home or self-care (01) ==
LOC: UTC 18:55
PROVIDERS: Nurse Practitioner
DX: J32.9 Chronic sinusitis, unspecified (principal); F17.210 Nicotine dependence, cigarettes, uncomplicated; E11.9 Type 2 diabetes mellitus without complications; J44.9 Chronic obstructive pulmonary disease, unspecified; E78.5 Hyperlipidemia, unspecified; I10 Essential (primary) hypertension; I25.10 Atherosclerotic heart disease of native coronary artery without angina pectoris; Z88.2 Allergy status to sulfonamides